=== PATIENT | male | born 1980 | race Caucasian/White ===

== ENCOUNTER 2017-03-28 08:02 | Day surgery (SDC) | payer OTHER ==
[~2017-03-28] VITALS: Ht 170.2 cm; Wt 102.4 kg
[2017-03-28] VITALS (7 sets, daily range): BP systolic 124–139; BP diastolic 90–99; PULSE 64–82; TEMP 97.7–98
[~2017-03-28 08:02] MED LIST: CIPRO 500MG TA500 MG PO; FLAGYL500 MG PO; MULTI VITAMINS1 TAB PO; PRILOTC
[2017-03-28] MEDS ORDERED: PROTONIX 40MG T40 MG PO (08:45)
== END 2017-03-28 11:00 | disposition home or self-care (01) ==
LOC: SDCO 08:02
DX: K91.850 Pouchitis (principal); K56.60 Unspecified intestinal obstruction; K52.9 Noninfective gastroenteritis and colitis, unspecified; K51.90 Ulcerative colitis, unspecified, without complications; K92.1 Melena; D64.9 Anemia, unspecified; Z90.49 Acquired absence of other specified parts of digestive tract
CPT/HCPCS: J2704; J7120

== ENCOUNTER → 2022-01-30 | Outpatient (CLI) | payer OTHER ==
[~2022-01-30] MED LIST changes: +PROTONIX 40MG T40 MG PO
[2022-01-30 09:09] LABS: HEMATOCRIT 44.8 % (42.0-52.0); HEMOGLOBIN 14.5 g/dl (13.5-18.0); MEAN CELL VOLUME 86 fl (80.0-100.0); MEAN CORPUSCULAR HEMOGLOBIN 28 pg (27-31); MEAN CORPUSCULAR HGB CONC 32 g/dl (33.0-37.0); MEAN PLATELET VOLUME 9.9 fl (7.4-10.4); PLATELET COUNT 367 K/mm3 (130-400); RED BLOOD COUNT 5.19 M/mm3 (4.20-5.60); REDCELL DISTRIBUTION WIDTH-CV 13.9 % (11.5-14.5)
[2022-01-30 09:25] LABS: ALBUMIN 3.9 gm/dL (3.5-5.0); BILIRUBIN,TOTAL 0.2 mg/dL (0.2-1.2); CALCIUM 9.3 mg/dL (8.4-10.2); CREATININE, serum 0.81 mg/dL (0.72-1.25); POTASSIUM 4.1 mmol/L (3.5-4.5); TOTAL PROTEIN 8.3 gm/dL (6.2-8.1)
[2022-01-30 10:15] LABS: COLLECTION METHOD CLEAN CATCH
[2022-01-30 10:45] LABS: MUCOUS Present (NOT PRESENT); PH 5 (5-8); SQUAMOUS EPITHELIAL None Seen /hpf (0-10); URINE APPEARANCE Clear (CLEAR/HAZY); URINE BACTERIA None Seen /hpf (NONE SEEN); URINE BILIRUBIN Negative (NEGATIVE); URINE BLOOD Negative (NEGATIVE); URINE COLOR Yellow (YELLOW); URINE GLUCOSE Negative (NEGATIVE); URINE KETONE Negative (NEGATIVE); URINE LEUKOCYTE ESTERASE Trace (NEGATIVE); URINE NITRATE Negative (NEGATIVE); URINE PROTEIN(semi-quant) Negative (NEGATIVE); URINE RBC 0-2 /hpf (0-2); URINE UROBILINOGEN Negative (NEGATIVE)
== END ==
LOC: COL.LAB 08:37
DX: Z01.812 Encounter for preprocedural laboratory examination (principal); Z01.810 Encounter for preprocedural cardiovascular examination

== ENCOUNTER 2024-02-13 18:02 | Observation (INO) | payer OTHER ==
[~2024-02-13] VITALS: Ht 170.2 cm; Wt 104.5 kg
[2024-02-13] MEDS ORDERED: Morphine 4 MG/ML VIAL IV ONE (18:30)
[2024-02-13] MEDS ORDERED: Ondansetron 4 MG/2 ML VIAL IV ONE (18:30)
[2024-02-13] MEDS ORDERED: NS 1,000 ML IV ONE ×2 (18:30→20:15)
[2024-02-13 18:56] LABS: BASO # 0.1 K/mm3 (0.0-0.2); BASO % 0.4 % (0.0-2.0); EOS # 0.2 K/mm3 (0.0-0.7); EOS % 0.9 % (0.0-4.0); GRAN # 12.4 K/mm3 (1.4-6.5); GRAN % 71.3 % (42.2-75.2); HEMATOCRIT 47.2 % (42.0-52.0); HEMOGLOBIN 15.3 g/dl (13.5-18.0); LYMPH # 3.8 K/mm3 (1.2-3.4); LYMPH % 21.7 % (20.0-51.0); MEAN CELL VOLUME 86 fl (80.0-100.0); MEAN CORPUSCULAR HEMOGLOBIN 28 pg (27-31); MEAN CORPUSCULAR HGB CONC 32 g/dl (33.0-37.0); MEAN PLATELET VOLUME 9.7 fl (7.4-10.4); MONO # 0.9 K/mm3 (0.1-0.6); MONO % 5.2 % (1.7-9.3); PLATELET COUNT 377 K/mm3 (130-400)
[2024-02-13] MEDS ORDERED: NS 50 ML IV SCH (19:07)
[2024-02-13] MEDS ORDERED: Iohexol 300 - 100 ML VIAL IV ONE (19:07)
[2024-02-13 19:11] LABS: ALBUMIN 4.3 g/dL (3.5-5.0); BILIRUBIN,TOTAL 0.5 mg/dL (0.2-1.2); CALCIUM 9.6 mg/dL (8.4-10.2); CREATININE, serum 1.04 mg/dL (0.72-1.25); POTASSIUM 3.7 mEq/L (3.5-4.5); TOTAL PROTEIN 8.6 g/dl (6.2-8.1)
[2024-02-13 19:46] LABS: COLLECTION METHOD CLEAN CATCH
[2024-02-13 19:58] LABS: PH 5.5 (5.0-8.5); URINE APPEARANCE CLEAR (CLEAR/HAZY); URINE BLOOD NEGATIVE (NEGATIVE); URINE COLOR YELLOW (YELLOW); URINE GLUCOSE NEGATIVE (NEGATIVE); URINE KETONE TRACE (NEGATIVE); URINE NITRATE NEGATIVE (NEGATIVE); URINE PROTEIN(semi-quant) NEGATIVE (NEGATIVE); URINE UROBILINOGEN 0.2 E.U/dL (0.2-1.0)
[2024-02-13] MEDS ORDERED: Morphine 4 MG/ML VIAL IV PRN (20:30)
[2024-02-13] MEDS ORDERED: Ondansetron 4 MG/2 ML VIAL IV PRN (20:30)
[2024-02-13] MEDS ORDERED: NS 1,000 ML IV SCH (20:30)
[2024-02-13 21:00] VITALS: BP_SYST 133
[2024-02-13 22:49] VITALS: BP 133/87; PULSE 88; TEMP 98.4
[2024-02-13 23:49] VITALS: BP 133/87
[2024-02-13 23:54] VITALS: BP_SYST 133
[2024-02-14 03:28] VITALS: BP 103/64; PULSE 103; PULSE 105; TEMP 98.6; TEMP 99
[2024-02-14 04:00] VITALS: BP_SYST 103
[2024-02-14 05:00] LABS: BASO # 0.1 K/mm3 (0.0-0.2); BASO % 0.6 % (0.0-2.0); EOS # 0.3 K/mm3 (0.0-0.7); GRAN # 8.1 K/mm3 (1.4-6.5); GRAN % 73.1 % (42.2-75.2); HEMATOCRIT 41.3 % (42.0-52.0); HEMOGLOBIN 13.7 g/dl (13.5-18.0); LYMPH # 1.7 K/mm3 (1.2-3.4); LYMPH % 14.9 % (20.0-51.0); MEAN CELL VOLUME 87 fl (80.0-100.0); MEAN CORPUSCULAR HEMOGLOBIN 29 pg (27-31); MEAN CORPUSCULAR HGB CONC 33 g/dl (33.0-37.0); MEAN PLATELET VOLUME 9.9 fl (7.4-10.4); MONO # 0.9 K/mm3 (0.1-0.6); MONO % 8.1 % (1.7-9.3); PLATELET COUNT 323 K/mm3 (130-400); RED BLOOD COUNT 4.74 M/mm3 (4.20-5.60); REDCELL DISTRIBUTION WIDTH-CV 15.3 % (11.5-14.5)
[2024-02-14 05:19] LABS: CREATININE, serum 0.86 mg/dL (0.72-1.25); POTASSIUM 3.5 mEq/L (3.5-4.5)
--- NOTE | 2024-02-14 05:38 | NUR ---
PT ADMITTED TO ROOM 348 @ 2200 FROM ED, IVF INFUSING @125 CC/HR IN RAC PIV, AMBULATING W/O DIFFICULTY TO RESTROOM. ABD PAIN REPORTED X1, RESOLVED WITH IV PAIN MEDS, NPO AT THIS TIME.
[2024-02-14 08:27] VITALS: BP 112/73; PULSE 84; TEMP 98.2
[2024-02-14 08:52] VITALS: BP_SYST 112
--- NOTE | 2024-02-14 08:54 | NUR ---
Pt in bathroom at this time with at bedside. Steady gait around room, fluids running, pt states no pain at this time. Dr Devine order to increase diet to low fiber, pt instructed to start slow with intake and notify staff if any increased pain or changes in bowel frequency. Pt reports a loose bm Q2 hours which is his baseline. No needs at this time, will continue to monitor.
[2024-02-14] MEDS ORDERED: Pantoprazole 40 MG in NS 10 ML IV SCH (09:00)
[2024-02-14 11:17] VITALS: BP 121/73; PULSE 74; TEMP 98.4
--- NOTE | 2024-02-14 11:23 | NUR ---
KRIS met with patient and Eli ([phone]) to complete initial assessment for discharge planning. Alisha and live in [place] with their two children. Patient sees Dr. Rea as his PCP and uses [facility] pharmacy. 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 No DME identified. Patient denies having a DPOA assigned and declines to complete one. Patient plans to return home at discharge potentially later today. Discharge plan: Home
[2024-02-14 12:22] VITALS: BP_SYST 121
--- NOTE | 2024-02-14 12:51 | NUR ---
Data: Patient declined Spiritual Care visit offered during Mission Analyst rounds. Hopes to discharge this afternoon. Patient and visitor did accept prayer. Assessment: Hopeful to discharge. Plan of Care: Mission Analyst offered a prayer. Patient and visitor thanked Mission Analyst. Chaplains will remain available as needed/requested while Patient is admitted to this hospital.
--- NOTE | 2024-02-14 12:55 | NUR ---
Discharge instructions provided to pt and . Discussed follow up appiontment with gastrointerologist and continuing home medicaitons. No questions at this time, IV removed, pt and belongings escorted out of building.
== END 2024-02-14 12:56 | disposition home or self-care (01) ==
LOC: COL.ER 18:02 → SURG 20:23
PROVIDERS: Nurse Practitioner Family; Physician Assistant; ADMIT Internal Medicine
DX: K56.600 Partial intestinal obstruction, unspecified as to cause (principal); K51.90 Ulcerative colitis, unspecified, without complications; Z90.49 Acquired absence of other specified parts of digestive tract; Z79.899 Other long term (current) drug therapy
CPT/HCPCS: G0378; J2270; J2405; J2470; J2543; J7030; Q9967